=== PATIENT | female | born 1975 | race Caucasian/White ===

== ENCOUNTER 2017-07-11 18:14 | Emergency (ER) | payer SELFPAY ==
[~2017-07-11] VITALS: Ht 167.6 cm; Wt 76.0 kg
[2017-07-11 19:12] VITALS: Ht 167.6 cm; Wt 76.0 kg
[2017-07-11 21:37] LABS: BASOPHILS % 0.2 % (0.0-2.0); EOSINOPHILS # 0.1 10^3/ul (0.0-0.5); EOSINOPHILS % 1.1 % (0.0-7.0); HEMATOCRIT 34.8 % (37.0-47.0); HEMOGLOBIN 12.4 g/dl (12.0-16.0); LYMPHOCYTES # 2.1 10^3/ul (0.8-2.9); LYMPHOCYTES % 24.2 % (15.0-51.0); MEAN CORPUSCULAR HEMOGLOBIN 29.6 pg (29.0-33.0); MEAN CORPUSCULAR HGB CONC 35.6 g/dl (32.0-37.0); MEAN CORPUSCULAR VOLUME 83.1 fl (82.0-101.0); MEAN PLATELET VOLUME 9.2 fl (7.4-10.4); MONOCYTE # 0.7 10^3/ul (0.3-0.9); MONOCYTES % 8.6 % (0.0-11.0); NEUTROPHIL # 5.6 10^3/ul (1.6-7.5); NEUTROPHILS % 65.5 % (39.0-77.0); PLATELET COUNT 247 10^3/UL (140-415); RED BLOOD COUNT 4.19 10^6/ul (4.20-5.40); RED CELL DISTRIBUTION WIDTH 11.9 % (11.5-14.5); WHITE BLOOD COUNT 8.6 10^3/ul (4.8-10.8)
[2017-07-11 21:45] LABS: ADD UMIC NO; UR ASCORBIC ACID 40 mg/dL (NEGATIVE); UR BACTERIA FEW /HPF (NONE SEEN); UR BILIRUBIN (Dip) NEGATIVE (NEGATIVE); UR BLOOD (Dip) NEGATIVE (NEGATIVE); UR CLARITY SLIGHTLY CLOUDY (CLEAR); UR COLOR YELLOW (YELLOW); UR GLUCOSE (Dip) 2+ mg/dL (NEGATIVE); UR KETONES (Dip) NEGATIVE (NEGATIVE); UR LEUKOCYTE ESTERASE (Dip) NEGATIVE Leu/ul (NEGATIVE); UR MUCUS FEW /HPF (NONE SEEN); UR NITRITE (Dip) NEGATIVE (NEGATIVE); UR RBC 6 /HPF (0-5); UR SPECIFIC GRAVITY (Dip) 1.014 (1.003-1.030); UR SQUAMOUS EPITHELIAL CELL FEW /HPF (FEW); UR TOTAL PROTEIN (Dip) NEGATIVE (NEGATIVE); UR UROBILINOGEN (Dip) NEGATIVE (NEGATIVE)
[2017-07-11 22:06] LABS: ALBUMIN/GLOBULIN RATIO 1.25; BILIRUBIN,INDIRECT 0.3 mg/dl (0-1.1); BILIRUBIN,TOTAL 0.3 mg/dl (0.2-1.3); CALCIUM 9.4 mg/dl (8.4-10.2); CREATININE 0.5 mg/dl (0.44-1.00); POTASSIUM 4.1 mmol/L (3.5-5.1); TOTAL PROTEIN 7.2 g/dl (6.1-8.1)
--- NOTE | 2017-07-11 22:19 | RADRPT ---
PROCEDURE: US Abdomen. CLINICAL INDICATION: Epigastric pain. TECHNIQUE: Limited right upper quadrant Multiple real-time images were acquired utilizing a high r esolution transducer. COMPARISON: None FINDINGS: The liver demonstrates normal echogenicity. The liver is normal in size and no focal solid lesions are seen. The portal vein is patent with normal direction of flow. No intrahepatic biliary dilatat ion is seen. The liver measures 15 cm in length. No gallstones are identified within the gallbladder. There is no pericholecystic fluid or gallbladd er wall thickening. The common bile duct measures 4.2 mm in maximal dimension. No free fluid is identified. The right kidney is normal in size, and demonstrates normal echogenicity and cortical thickness. T he right kidney measures 10.5 x 3.9 x 5.6 cm. There is no evidence of hydronephrosis or nephrolithi asis. IMPRESSION: Unremarkable abdominal ultrasound. RPTAT:AAJJ Physician Luzmaria Date Time Electronically viewed and signed by Physician Luzmaria on 07/11/2017 22:18 ARI/
--- NOTE | 2017-07-11 22:26 | RADRPT ---
PROCEDURE: US OB. CLINICAL INDICATION: Pelvic pain. TECHNIQUE: Transabdominal sonographic evaluation of the pelvis using hudson scale and color Doppler i maging was performed. COMPARISON: None available. FINDINGS: There is a single intrauterine with a pole identified. The crown-rump length equals 3.2 cm. The estimated gestational age equals 10 weeks 1 day by ultrasound criteria. Normal cardiac activity is identified with a HR of 161 bpm. There is a small subchorionic hemorrhage measuring 1.4 cm. A uterine contraction was identified. There is normal flow within the right ovary. The left ovary is not identified. There is no free fluid within the pelvis and there are no adnexal mass. IMPRESSION: 1. Single viable intrauterine with an estimated gestational age of 10 weeks 1 day by ultr asound criteria and an estimated date of delivery of 02/05/2018. 2. Small subchorionic hemorrhage measuring 1.4 cm. Short interval follow-up is recommended. RPTAT: HLBP .Balaji Lewis MD, Date Time Electronically viewed and signed by .Balaji Lewis MD, MD on 07/11/2017 22:25 .P/
--- NOTE | 2017-07-12 00:30 | ERD ---
ER Documentation Chief Complaint Chief Complaint bib self, cc: nausea and vomiting HPI 41-year-old female complaining of nausea and vomiting. Patient states she is 6 or 7 weeks . G1 p.o. AO. LNMP May 06. Denies vaginal bleeding. Complaining of epigastric pain. Denies chest pain or shortness of breath. Has had normal bowel movements. ROS All systems reviewed and are negative except as per history of present illness. Allergies Allergies: Uncoded Allergies: BLEACH (Allergy, Mild, 07/11/17) PMhx/Soc Medical and Surgical Hx: pt denies Medical Hx, pt denies Surgical Hx Hx Alcohol Use: No Hx Substance Use: No Hx Tobacco Use: No Smoking Status: Never smoker Physical Exam Vitals Vital Signs Date Time Temp Pulse Resp B/P Pulse Ox O2 Delivery O2 Flow Rate FiO2 07/11/17 19:12 98.1 82 18 138/80 100 Physical Exam GENERAL: The patient is well-appearing, well-nourished, in no acute distress CHEST: Clear to auscultation bilaterally. There are no rales, wheezes or rhonchi. HEART: Regular rate and rhythm. No murmurs, clicks, rubs or gallops. No S3 or S4. ABDOMEN:Soft, nontender and nondistended. Good bowel sounds. No rebound or guarding. No gross peritonitis. No gross organomegaly or masses. No Cobb sign or McBurney point tenderness. BACK: No midline or flank tenderness. Result Diagram: 07/11/17211407/11/172114 Results 24 hrs Laboratory Tests Test 07/11/17 21:15 White Blood Count 8.610^3/ul Red Blood Count 4.1910^6/ul Hemoglobin 12.4g/dl Hematocrit 34.8% Mean Corpuscular Volume 83.1fl Mean Corpuscular Hemoglobin 29.6pg Mean Corpuscular Hemoglobin Concent 35.6g/dl Red Cell Distribution Width 11.9% Platelet Count 11795^3/UL Mean Platelet Volume 9.2fl Neutrophils % 65.5% Lymphocytes % 24.2% Monocytes % 8.6% Eosinophils % 1.1% Basophils % 0.2% Nucleated Red Blood Cells % 0.0/100WBC Neutrophils # 5.610^3/ul Lymphocytes # 2.110^3/ul Monocytes # 0.710^3/ul Eosinophils # 0.110^3/ul Basophils # 0.010^3/ul Nucleated Red Blood Cells # 0.010^3/ul Urine Color YELLOW Urine Clarity SLIGHTLY CLOUDY Urine pH 5.0 Urine Specific Rueter 1.014 Urine Ketones NEGATIVEmg/dL Urine Nitrite NEGATIVEmg/dL Urine Bilirubin NEGATIVEmg/dL Urine Urobilinogen NEGATIVEmg/dL Urine Leukocyte Esterase NEGATIVELeu/ul Urine Microscopic RBC 6/HPF Urine Microscopic WBC 2/HPF Urine Squamous Epithelial Cells FEW/HPF Urine Bacteria FEW/HPF Urine Mucus FEW/HPF Urine Hemoglobin NEGATIVEmg/dL Urine Glucose 2+mg/dL Urine Total Protein NEGATIVEmg/dl Sodium Level 136mmol/L Potassium Level 4.1mmol/L Chloride Level 102mmol/L Carbon Dioxide Level 24mmol/L Anion Gap 14 Blood Urea Nitrogen 9mg/dl Creatinine 0.50mg/dl Glucose Level 84mg/dl Calcium Level 9.4mg/dl Total Bilirubin 0.3mg/dl Direct Bilirubin 0.00mg/dl Indirect Bilirubin 0.3mg/dl Aspartate Amino Transf (AST/SGOT) 21IU/L Alanine Aminotransferase (ALT/SGPT) 32IU/L Alkaline Phosphatase 53IU/L Total Protein 7.2g/dl Albumin 4.0g/dl Globulin 3.20g/dl Albumin/Globulin Ratio 1.25 Lipase 74U/L Beta HCG, Quantitative 014782.0mIU/ml Procedures/[facility] REPORT Patient: EVAN CHAN : 1975 Age: 41 Sex: F MR #: [id number] DOS: 07/11/172056 Ordering MD: CARLA LANDIN PA-C Location: E Room/Bed: PROCEDURE: US Abdomen. CLINICAL INDICATION: Epigastric pain. TECHNIQUE: Limited right upper quadrant Multiple real-time images were acquired utilizing a high resolution transducer. COMPARISON: None FINDINGS: The liver demonstrates normal echogenicity. The liver is normal in size and no focal solid lesions are seen. The portal vein is patent with normal direction of flow. No intrahepatic biliary dilatation is seen. The liver measures 15 cm in length. No gallstones are identified within the gallbladder. There is no pericholecystic fluid or gallbladder wall thickening. The common bile duct measures 4.2 mm in maximal dimension. No free fluid is identified. The right kidney is normal in size, and demonstrates normal echogenicity and cortical thickness. The right kidney measures 10.5 x 3.9 x 5.6 cm. There is no evidence of hydronephrosis or nephrolithiasis. IMPRESSION: Unremarkable abdominal ultrasound. RPTAT:[facility] DIAGNOSTIC IMAGING REPORT Patient: EVAN CHAN : 1975 Age: 41 Sex: F MR #: [id number] DOS: 07/11/172056 Ordering MD: CARLA LANDIN PA-C Location: [facility] Room/Bed: PROCEDURE: US OB. CLINICAL INDICATION: Pelvic pain. TECHNIQUE: Transabdominal sonographic evaluation of the pelvis using hudson scale and color Doppler imaging was performed. COMPARISON: None available. FINDINGS: There is a single intrauterine with a pole identified. The crown-rump length equals 3.2 cm. The estimated gestational age equals 10 weeks 1 day by ultrasound criteria. Normal cardiac activity is identified with a HR of 161 bpm. There is a small subchorionic hemorrhage measuring 1.4 cm. A uterine contraction was identified. There is normal flow within the right ovary. The left ovary is not identified. There is no free fluid within the pelvis and there are no adnexal mass. IMPRESSION: 1. Single viable intrauterine with an estimated gestational age of 10 weeks 1 day by ultrasound criteria and an estimated date of delivery of 02/05. 2. Small subchorionic hemorrhage measuring 1.4 cm. Short interval follow-up is recommended. MDM: 41-year-old female complaining of nausea and vomiting with epigastric pain 1 day. Patient believes she is 6 or 7 weeks . I have low suspicion for miscarriage as viable is seen on ultrasound. I have low suspicion for ectopic . I have low suspicion for dehydration as patient's CMP is within normal limits. Low suspicion for acute abdomen as patient's exam is non-concerning. Patient is discharged with strict ER precautions and recommended to follow-up with PMD within 1-2 days for close evaluation. I have low suspicion for urinary tract infection. All questions answered at discharge Rhogam given in ED Departure Diagnosis: Primary Impression: Condition: Stable Patient Instructions: , Established, Normal Symptoms Referrals: [facility] YOU HAVE RECEIVED A MEDICAL SCREENING EXAM AND THE RESULTS INDICATE THAT YOU DO NOT HAVE A CONDITION THAT REQUIRES URGENT TREATMENT IN THE EMERGENCY DEPARTMENT. FURTHER EVALUATION AND TREATMENT OF YOUR CONDITION CAN WAIT UNTIL YOU ARE SEEN IN YOUR DOCTORS OFFICE WITHIN THE NEXT 1-2 DAYS. IT IS YOUR RESPONSIBILITY TO MAKE AN APPOINTMENT FOR FOLOW-UP CARE. IF YOU HAVE A PRIMARY DOCTOR --you should call your primary doctor and schedule an appointment IF YOU DO NOT HAVE A PRIMARY DOCTOR YOU CAN CALL OUR PHYSICIAN REFERRAL HOTLINE AT IF YOU CAN NOT AFFORD TO SEE A PHYSICIAN YOU CAN CHOSE FROM THE FOLLOWING FORMERLY [facility] [id number] [facility] [address] [facility] [facility] [address] [facility] [facility] [address] [facility] [facility] [address] [facility]. [facility]. [address] Additional Instructions: FOLLOW UP WITH YOUR PRIMARY CARE PHYSICIAN TOMORROW.Return to this facility if you are not improving as expected. ENID LANDIN PA-C Jul 12, 2017 00:30
== END 2017-07-12 01:10 | disposition home or self-care (01) ==
LOC: FTE 18:14
DX: O21.9 Vomiting of pregnancy, unspecified (principal); O26.891 Other specified pregnancy related conditions, first trimester; R10.13 Epigastric pain; R10.2 Pelvic and perineal pain; Z3A.10 10 weeks gestation of pregnancy
CPT/HCPCS: 36415; 76705; 76801; 80053; 81001; 83690; 84702; 85025; 86900; 86901; 99285; J2790; 81003